=== PATIENT | male | born 1950 | race Caucasian/White ===

== ENCOUNTER 2018-03-02 13:06 | Inpatient (IN) ==
--- NOTE | 2018-03-02 14:51 | General Surgery Consult Note ---
<Rosi Oconnor - Last Filed: 03/02/18 14:51> Date of Encounter: 03/02/18 Time of Encounter: 14:51 Past Med Surg Social Fam HX - Past Medical History Medical history: aortic aneurysm, arthritis, diabetes, hyperlipidemia, hypertension, other (History of aortic dissection) Psychiatric history: anxiety, depression - Social History Smoking Status: Former smoker Smokeless Tobacco Status: Yes Alcohol use: none Drug use: none Medications and Allergies Aspirin [Adult Low Dose Aspirin EC] 81 mg PO HS 11/04/15 [History] Atenolol [Tenormin] 50 mg PO BID 11/04/15 [History] Cholecalciferol (Vitamin D3) [Vitamin D3] 5,000 unit PO DAILY 11/04/15 [History] Flaxseed Oil 1,000 mg PO HS 11/04/15 [History] Glimepiride [Amaryl] 8 mg PO DAILY 11/04/15 [History] Insulin Glargine,Hum.rec.anlog [Lantus Solostar] 30 unit SQ HS 11/04/15 [History ] Labetalol HCl 200 mg PO BID 11/04/15 [History] Lisinopril [Zestril] 40 mg PO BID 11/04/15 [History] Niacin [Niacor] 500 mg PO DAILY 11/04/15 [History] Sodium Chloride 1 gm PO DAILY 11/04/15 [History] amLODIPine [Norvasc] 5 mg PO DAILY 11/04/15 [History] Gemfibrozil [Lopid] 600 mg PO BIDWM 03/02/18 [History] cloNIDine HCl [Clonidine HCl] 0.3 mg PO TID 03/02/18 [History] 3 Allergy/AdvReac Type Severity Reaction Status Date / Time Hydromorphone [From Dilaudid] Allergy Severe Difficulty Verified 03/02/18 11:17 Breathing Oxytetracycline Allergy Mild swelling Verified 03/02/18 11:17 (childhood reaction) rosuvastatin [From Crestor] AdvReac Mild Muscle Pain Verified 03/02/18 11:17 Review of Systems All systems PM: The remainder of the systems were reviewed and are negative Results - Labs All other labs normal. Consult Discharge Plan - Plan Referrals: Margret Quezada, PRIEST [Primary Care Provider] - <Jimenez Tejeda - Last Filed: 03/02/18 18:03> Date of Encounter: 03/02/18 Assessment and Plan (1) Bowel obstruction Current Visit: No Status: Acute Extensive surgical history of the abdomen. Patient of Dr. Sanchez previously. Transferred from [place] ED given extensive surgical history and CT results below. Primary symptoms include cramping/wavelike pain, nausea, vomiting with possible fecal content given odor, and paucity/absence of BMs/flatus. Labs from [place] ED reviewed: - white count 10.3 K, hemoglobin 18.3, hematocrit 51.4, platelet 278k - PT 10.4 seconds, INR 1.0, aPTT 29.4 seconds - sodium 133, potassium 4.6, chloride 92, HCO3 26, magnesium 3.2, calcium 10.6 - BUN 31, creatinine 1.24 - serum glucose 457, (most recent A1c = 10.7%) - lactate 3.2 - total bili 0.8, direct bili 0.1, indirect bili 0.7, AST 19, ALT 16, ALP 82 - amylase 34, and lipase 65 - troponin <0.03 CT Abd Pelvis 03/02/18: Organs: The unenhanced liver, spleen, pancreas, adrenal glands and kidneys are unremarkable. The liver is diffusely low in attenuation consistent with hepatic steatosis. There are bilateral punctate nonobstructing nephrolithiasis without evidence hydronephrosis. GI/Bowel: Status post appendectomy and small bowel resection with reanastomosis. However, there are multiple dilated loops of small bowel throughout the entire abdomen with the transition point in the anterior midline pelvis just proximal to the small bowel anastomosis Plan: - NG tube in place on LIWS; confirmed with KUB -- later retracted and readvanced ; secured and re-verified by second KUB - NPO - pain control PRN - antiemetics PRN - pt hypovolemic - NS bolus 500mL now followed by 130mL/hr while NPO - close monitoring of vitals - serial abdominal exams - electrolytes QAM while NPO Qualifiers: Intestinal obstruction type: unspecified Intestinal obstruction extent: partial Qualified Code(s): K56.600 - Partial intestinal obstruction, unspecified as to cause (2) H/O abdominal surgery Current Visit: Yes Status: Acute see history tab; plans as above History of Present Illness Consult date: 03/02/18 History of present illness: 67-year-old male with past medical history of hypertension, hyperlipidemia, diabetes type II, stated history of aortic aneurysm/dissection, diverticulosis, and extensive surgical history transferred from [facility] due to partial small bowel obstruction elucidated on CT of the abdomen. HPI: cramping abdominal pain distention for the last 2 nights. No previous pain quite like this one. Describes as 10/10 peak at present. Patient states initially onset was gradual and less severe. Describes location of pain as a horizontal area about 8 inches wide midway between his periumbilical region and epigastrium. Describes pain as a wave-like cramping sensation. No radiating or migratory features. No known palliative factors; patient does have episodes where he feels constipated and he tries milk of magnesia for that which has not relieved present symptoms. No known provocative factors of pain. Patient also notes absence of bowel/flatus; last bowel movement early 03/01/2018. Has had bilious vomitus, particularly with any PO intake. He describes a nasty smelling vomitus. Patient states was able to sleep through ambulance ride between hospitals. Denies fevers, myalgias, syncope, lightheadedness, retro sternal pain, palpitations, shortness of breath, bloody contents of vomitus, melena, grossly bloody stools, flank pain, dysuria, hematuria, testicular pain, abnormal penile discharge. Does have chills and sweats during peak moments of wavelike pain. Surgical history: though timing/sequence is vaguely described, patient states has history of diverticulosis, bowel perforation, laparotomy, bowel resections with temporary colostomy, colostomy takedown, herniorrhaphy, and repair of herniorrhaphy; previous surgeon Dr. Sanchez. CT ABd Pelvis 03/02/18: Organs: The unenhanced liver, spleen, pancreas, adrenal glands and kidneys are unremarkable. The liver is diffusely low in attenuation consistent with hepatic steatosis. There are bilateral punctate nonobstructing nephrolithiasis without evidence hydronephrosis. GI/Bowel: Status post appendectomy and small bowel resection with reanastomosis. However, there are multiple dilated loops of small bowel throughout the entire abdomen with the transition point in the anterior midline pelvis just proximal to the small bowel anastomosis Past Med Surg Social Fam HX - Past Medical History Attestation: Yes The following information was validated with the patient. Source: patient Medical history: aortic aneurysm, diabetes, hyperlipidemia, hypertension, other - Past Surgical History Surgical History: colectomy, colostomy (Taken down and anastomosed), herniorrhaphy - Social History Smoking Status: Former smoker Alcohol use: none Drug use: none Review of Systems All systems PM: The remainder of the systems were reviewed and are negative - Constitutional as per HPI General Surgery Exam Initial Vital Signs Temp Pulse Resp BP Pulse Ox 98.1 F 113 18 159/94 94 03/02/18 14:52 03/02/18 14:52 03/02/18 14:52 03/02/18 14:52 03/02/18 14:52 VITAL SIGNS: Reviewed. See [facility] GENERAL: in apparent distress with episodic pain; patient in tears during these episodes. Alert and answers questions appropriately HEENT: [Normocephalic, PER, EOMi, oropharynx dry, no JVD noted. NG tube in place CV: b/l rad/DP pulses 2+, RRR, no murmurs or gallops, no JVD RESPIRATORY: CTAB without wheezes, rales, or rhonchi ABD: rotund, grossly distended, multiple surgical scars evident, normal skin appearance, bowel sounds very infrequent, overall soft, nontender except for periumbilical region just barely RLQ, no tenderness in other quadrants, no rebound/rigidity, negative heel jar sign, negative Lopez sign EXTREMITY: grossly normal motor function, no pedal edema, peripheral pulses 2+ b /l NEUROLOGIC EXAM: AOx3, obeys commands, no speech deficits. PSYCHIATRIC: normal mood and affect SKIN: no gross lesions, rashes, or skin changes Exam Initial Vital Signs Temp Pulse Resp BP Pulse Ox 98.1 F 113 18 159/94 94 03/02/18 14:52 03/02/18 14:52 03/02/18 14:52 03/02/18 14:52 03/02/18 14:52 Results - Labs 03/02/18 16:55 03/02/18 16:55 All other labs normal. <Galdino Sanchez M - Last Filed: 03/03/18 06:24> Date of Encounter: 03/02/18 Review of Systems All systems PM: The remainder of the systems were reviewed and are negative General Surgery Exam Initial Vital Signs Temp Pulse Resp BP Pulse Ox 98.1 F 113 18 159/94 94 03/02/18 14:52 03/02/18 14:52 03/02/18 14:52 03/02/18 14:52 03/02/18 14:52 Exam Initial Vital Signs Temp Pulse Resp BP Pulse Ox 98.1 F 113 18 159/94 94 03/02/18 14:52 03/02/18 14:52 03/02/18 14:52 03/02/18 14:52 03/02/18 14:52 Results - Labs 03/03/18 04:12 03/03/18 04:12 Abnormal lab results WBC 3.5 K/mcL (4.3-11.1) L 03/03/18 04:12 Lymphocytes # 0.5 K/mcL (0.6-4.6) L 03/02/18 16:55 Nucleated RBCs/100 WBC 1.1 /100 WBC (0) H 03/03/18 04:12 Reactive Lymphocytes Present (Not Present) A 03/02/18 16:55 BUN 29 mg/dL (8-23) H 03/03/18 04:12 BUN/Creatinine Ratio 28 (6-26) H 03/03/18 04:12 Glucose 313 mg/dL (70-105) H 03/03/18 04:12 POC Glucose 271 mg/dL (70-99) H 03/03/18 04:38 Calculated Osmolality 306 (280-300) H 03/03/18 04:12 Calcium 8.4 mg/dL (8.6-10.3) L 03/03/18 04:12 Ur Specific [place] 1.030 (1.010-1.025) H 03/03/18 00:36 Urine Glucose (UA) >=1000 mg/dL (Normal) H 03/03/18 00:36 Urine Ketones 15 mg/dL (Negative) H 03/03/18 00:36 Urine Microscopic RBC 3-5 per hpf (0-3) H 03/03/18 00:36 Ur Squamous Epith Cells Moderate per lpf (None-Few) H 03/03/18 00:36 Diabetes panel 03/02/18 03/03/18 Range/Units 16:55 04:12 Sodium 139 139 (136-145) mEq/L Potassium 4.4 4.7 (3.5-5.1) mEq/L Chloride 101 100 (98-107) mEq/L Carbon Dioxide 28 29 (23-29) mEq/L BUN 30 H 29 H (8-23) mg/dL Creatinine 1.05 1.02 (0.70-1.30) mg/dL Glucose 261 H 313 H (70-105) mg/dL Calcium 9.0 8.4 L (8.6-10.3) mg/dL Calcium panel 03/02/18 03/03/18 Range/Units 16:55 04:12 Calcium 9.0 8.4 L (8.6-10.3) mg/dL Pituitary panel 03/02/18 03/03/18 Range/Units 16:55 04:12 Sodium 139 139 (136-145) mEq/L Potassium 4.4 4.7 (3.5-5.1) mEq/L Chloride 101 100 (98-107) mEq/L Carbon Dioxide 28 29 (23-29) mEq/L BUN 30 H 29 H (8-23) mg/dL Creatinine 1.05 1.02 (0.70-1.30) mg/dL Glucose 261 H 313 H (70-105) mg/dL Calcium 9.0 8.4 L (8.6-10.3) mg/dL Adrenal panel 03/02/18 03/03/18 Range/Units 16:55 04:12 Sodium 139 139 (136-145) mEq/L Potassium 4.4 4.7 (3.5-5.1) mEq/L Chloride 101 100 (98-107) mEq/L Carbon Dioxide 28 29 (23-29) mEq/L BUN 30 H 29 H (8-23) mg/dL Creatinine 1.05 1.02 (0.70-1.30) mg/dL Glucose 261 H 313 H (70-105) mg/dL Calcium 9.0 8.4 L (8.6-10.3) mg/dL All other labs normal. - Attending Attestation I have personally performed a face to face evaluation on this patient. I have reviewed and agree with the care plan. History and Exam by me shows: Review the above assessment and evaluation and agree with the above plan. Patient has had abdominal pain for the past 2 days with nausea vomiting. He states his last bowel movement was approximately 2 days ago and he normally has a bowel movement twice a day. On exam he is tender to palpation in lower abdomen versus the upper. He is distended as well with midline incision showing no evidence of an incisional hernia. I personally reviewed the CT scan images and report which shows no free air or free fluid but does show dilated small bowel. He also has air in the colon and stool present. This is consistent with either partial small bowel obstruction or small bowel obstruction. I agree with NG to placement and IV fluid hydration. He will require IV fluids due to his elevated creatinine and noted elevated hemoglobin which is likely due to hemoconcentration and dehydration. I think the most important thing will be to monitor and administer medication for pain control while his bowel is decompressed. Will follow with you.
[2018-03-02] MEDS ORDERED: Ondansetron 4 MG/2 ML VIAL IVP ONE (15:28)
[2018-03-02] MEDS ORDERED: *HR* FentaNYL (PF) 100 MCG/2 ML VIAL IVP ONE (15:28)
[2018-03-02] MEDS ORDERED: Chloraseptic Spray 177 ML BOTTLE MM PRN (15:30)
[2018-03-02] MEDS ORDERED: Acetaminophen IV 1,000 MG/100 ML INFUS..BTL IVPB ONE (15:33)
[2018-03-02] MEDS ORDERED: OXYCODONE Oral CONC 10 MG/0.5 ML ORAL.SYG SL PRN (15:33)
[2018-03-02] MEDS ORDERED: *HR* Morphine 2 MG/ML SYRINGE IVP PRN (15:47)
[2018-03-02] MEDS: Pantoprazole 40 MG VIAL IVP SCH (16:03)
[2018-03-02] MEDS ORDERED: *HR* OxyCODONE Immed Rel 5 MG TABLET PO PRN (16:11)
[2018-03-02] MEDS ORDERED: Naloxone 0.4 MG/ML INJ IVP PRN (16:18)
--- NOTE | 2018-03-02 16:27 | Internal Med History&Physical ---
Date of Encounter: 03/02/18 Time of Encounter: 16:23 Internal Medicine - H&P: HPI Admitted From: Hospital to Hospital Transfer (From [facility]) Plans for Post Hospital Care: Home History of present illness: Mr. Garcia is a 67 year old male who has history of htn, hld, and DM. Presents to the hospital from [facility] after the ED discovered he had a partial SBO. The patient apparently presented to the ED with nausea and vomiting and severe abdominal cramping. The patient wbc is 10.3 the lipase was 65 and the maylase was 34. The patient does not currently have a fever. Ct of abd/pelvis showed a partial SBO with the transition point in anterior pelvis. Small to mod amt of mesenteric edema. On exam the patient was having severe abdominal cramping that brought him to tears. The episode lasted briefly, but the family indicated that he had done this several times before. Patient guarding abdomen with light palpation to umbilicus to right side. The blood glucose was 457 @ [facility]. Will get new set of labs and re-eval. The patient indicated that he had a normal stool this am. Surgery consulting and have seen the patient. Past Med Surg Social Fam HX - Past Medical History Medical history: aortic aneurysm, diabetes, hyperlipidemia, hypertension, other Psychiatric history: anxiety, depression - Past Surgical History Surgical History: colectomy, colostomy (Taken down and anastomosed), herniorrhaphy - Social History Smoking Status: Former smoker Smokeless Tobacco Status: Yes Alcohol use: none Drug use: none Internal Medicine - H&P: Meds Aspirin [Adult Low Dose Aspirin EC] 81 mg PO HS 11/04/15 [History] Atenolol [Tenormin] 50 mg PO BID 11/04/15 [History] Cholecalciferol (Vitamin D3) [Vitamin D3] 5,000 unit PO DAILY 11/04/15 [History] Flaxseed Oil 1,000 mg PO HS 11/04/15 [History] Glimepiride [Amaryl] 8 mg PO DAILY 11/04/15 [History] Insulin Glargine,Hum.rec.anlog [Lantus Solostar] 30 unit SQ HS 11/04/15 [History ] Labetalol HCl 200 mg PO BID 11/04/15 [History] Lisinopril [Zestril] 40 mg PO BID 11/04/15 [History] Niacin [Niacor] 500 mg PO DAILY 11/04/15 [History] Sodium Chloride 1 gm PO DAILY 11/04/15 [History] amLODIPine [Norvasc] 5 mg PO DAILY 11/04/15 [History] Gemfibrozil [Lopid] 600 mg PO BIDWM 03/02/18 [History] cloNIDine HCl [Clonidine HCl] 0.3 mg PO TID 03/02/18 [History] 3 Allergy/AdvReac Type Severity Reaction Status Date / Time Hydromorphone [From Dilaudid] Allergy Severe Difficulty Verified 03/02/18 11:17 Breathing Oxytetracycline Allergy Mild swelling Verified 03/02/18 11:17 (childhood reaction) rosuvastatin [From Crestor] AdvReac Mild Muscle Pain Verified 03/02/18 11:17 All Systems PM: A 10-system review of systems was performed and is negative for pertinent findings except as documented above in the HPI. - Constitutional Constitutional: no chills, no fever(s), no night sweats - EENT Eyes: no change in vision, no discharge, no pain, no photophobia Ears: no ear discharge, no ear pain, no tinnitus Nose, mouth and throat: no dysphagia, no nasal discharge, no neck pain, no sore throat - Cardiovascular Cardiovascular ROS IM: no chest pain, no diaphoresis, no dyspnea, no lightheadedness, no palpitations, no syncope - Respiratory Respiratory: no cough, no dyspnea, no wheezing, no excessive phlegm production - Gastrointestinal Gastrointestinal: abdominal pain (Right side), no diarrhea, no hematemesis, no hematochezia, no melena, no nausea, no vomiting - Musculoskeletal Musculoskeletal ROS IM: no numbness, no tingling - Integumentary Integumentary IM: no rash, no unusual bruising - Neurological Neurological ROS: no confusion, no convulsions, no focal weakness, no numbness, no tingling, no tremor(s) - Hematologic/Lymphatic Hematologic/Lymphatic: no easy bruising - Constitutional Vitals: Temp Pulse Resp BP Pulse Ox 98.1 F 114 18 154/82 89 03/02/18 16:15 03/02/18 16:15 03/02/18 16:15 03/02/18 16:15 03/02/18 16:15 General appearance: Present: A&O X 3, severe distress - Head Head exam: Present: atraumatic, normocephalic - Eye Eye exam: Present: PERRL, conjuntiva pink, sclera anicteric Pupils: Present: PERRL - Neck Neck exam general surgery: Present: supple, trachea midline. Absent: lymphadenopathy - Respiratory Respiratory exam: Present: decreased breath sounds. Absent: accessory muscle use, rales, rhonchi, wheezes - Cardiovascular Cardiovascular exam: Present: RRR, +S1, +S2. Absent: diastolic murmur, gallop, rubs, systolic murmur - GI/Abdominal GI/Abdominal exam: Present: diminished bowel sounds, distended, guarding, normal bowel sounds, soft, tenderness (Right side), no peritoneal signs - Extremities Exam Extremities exam: Present: warm, radial pulses palpable and symmetrical. Absent : calf tenderness, cyanotic, pedal edema - Neurological Exam Neurological exam: Present: CN II-XII intact, oriented X3, no focal deficits. Absent: pronater drift, facial droop, speech deficit - Skin Skin exam: Present: dry, intact Internal Med - H&P Results - Labs CBC & Chem 7: 03/02/18 16:55 03/02/18 16:55 - Impressions ITS Impressions KUB X-Ray 03/02/18 15:26 IMPRESSION: NG tube tip and side-port in the gastric fundus D/ / Chauncey Akhtar MD / Chauncey Akhtar MD Interpreting Provider: Chauncey Akhtar MD - Assessment and plan (1) Abdominal pain Current Visit: No Status: Acute Assessment and plan: The patient was found to have SBO. Pain was better controlled after fentanyl and zofran. Surgery on the case. Continue npo status and NGT. Ivf;s. Qualifiers: Abdominal location: unspecified location Qualified Code(s): R10.9 - Unspecified abdominal pain (2) Bowel obstruction Current Visit: No Status: Acute Assessment and plan: The patient was found to have a partial SBO. Pain was better controlled after fentanyl and zofran, once he arrived. Surgery on the case. Continue npo status and NGT. Ivf's. Qualifiers: Intestinal obstruction type: unspecified Intestinal obstruction extent: partial Qualified Code(s): K56.600 - Partial intestinal obstruction, unspecified as to cause (3) Hyperglycemia Current Visit: No Status: Acute Assessment and plan: Blood glucose in 400's @ [facility]. Will repeat BMP, cbc, get UA and acetone level to evaluate for possible DKA. Apparently the patient is non-adherent with his diabetic meds-as reported. - Time Spent With Patient Total time spent is greater than 50% in coordination of care (as documented) at patient's floor/unit and/or counseling patient: Greater than 35 minutes
[2018-03-02] MEDS ORDERED: 0.9 % Sodium Chloride 500 ML IVC ONE (16:55)
[2018-03-02 17:14] LABS: Basophils % 0.5 %; Eosinophils # 0.1 K/mcL (0.0-0.6); Eosinophils % 1.1 %; Hemoglobin 16.7 g/dL (12.9-16.9); Immature Granulocytes % 0.2 % (0-4); Lymphocytes # 0.5 K/mcL (0.6-4.6); Lymphocytes % 11.5 %; Mean Corpuscular HGB Conc 36.3 g/dL (31.6-35.5); Mean Corpuscular Hemoglobin 31.1 pg (28.0-33.3); Mean Corpuscular Volume 85.7 fL (83.0-100.0); Mean Platelet Volume 10.8 fL (9.4-12.4); Monocytes # 0.7 K/mcL (0.0-1.3); Monocytes % 15.8 %; Neutrophils # 3.1 K/mcL (1.6-8.9); Platelet Count 249 K/mcL (140-400); Red Blood Count 5.37 M/mcL (4.19-5.50); Red Cell Distribution Width 13.4 % (11.5-14.5); Segmented Neutrophils % 70.9 %
[2018-03-02 17:27] LABS: BUN/Creatinine Ratio 29 (6-26); Blood Urea Nitrogen 30 mg/dL (8-23); Carbon Dioxide 28 mEq/L (23-29); Chloride 101 mEq/L (98-107); Glucose 261 mg/dL (70-105); Osmolality,Calculated 303 (280-300); Potassium 4.4 mEq/L (3.5-5.1); Sodium 139 mEq/L (136-145); eGFR For African Americans > 60 (> 60); eGFR For Non-African Americans > 60 (> 60)
[2018-03-02 17:37] LABS: Reactive Lymphocytes Present (Not Present)
[2018-03-02] MEDS: 0.9 % Sodium Chloride 1,000 ML IVC SCH (18:55)
[2018-03-02] MEDS: OXYCODONE Oral CONC 10 MG/0.5 ML ORAL.SYG SL PRN (21:07)
[2018-03-03] MEDS ORDERED: Acetaminophen IV 1,000 MG/100 ML INFUS..BTL IVPB ONE (01:12)
[2018-03-03 01:15] LABS: Bilirubin,Urine Negative (Negative); Blood,Urine Negative (Negative); Clarity,Urine Clear (Clear); Color,Urine Yellow (Yellow); Glucose,Urine (UA) >=1000 mg/dL (Normal); Ketones,Urine 15 mg/dL (Negative); Leukocyte Esterase,Urine Negative (Negative); Nitrite,Urine Negative (Negative); Protein,Urine Trace mg/dL (Neg-Trace); Urobilinogen,Urine Normal (Normal)
[2018-03-03 01:18] LABS: Bacteria,Urine None Seen per hpf (None-Few); Hyaline Casts,Urine None Seen per lpf (None-Few); Squamous Epithelial Cell,Urine Moderate per lpf (None-Few); WBC,Urine 0-3 per hpf (0-3)
[2018-03-03] MEDS: 0.9 % Sodium Chloride 1,000 ML IVC SCH ×4 (01:51→22:36)
[2018-03-03] MEDS: OXYCODONE Oral CONC 10 MG/0.5 ML ORAL.SYG SL PRN ×2 (05:06→10:27)
[2018-03-03 05:13] LABS: Eosinophils # 0.1 K/mcL (0.0-0.6); Hematocrit 45.3 % (37.5-50.1); Hemoglobin 15.6 g/dL (12.9-16.9); Mean Corpuscular HGB Conc 34.4 g/dL (31.6-35.5); Mean Corpuscular Hemoglobin 30.6 pg (28.0-33.3); Mean Corpuscular Volume 88.8 fL (83.0-100.0); Nucleated Red Blood Cells 1.1 /100 WBC (0); Platelet Count 207 K/mcL (140-400); Red Cell Distribution Width 13.6 % (11.5-14.5)
[2018-03-03 05:36] LABS: BUN/Creatinine Ratio 28 (6-26); Blood Urea Nitrogen 29 mg/dL (8-23); Calcium 8.4 mg/dL (8.6-10.3); Carbon Dioxide 29 mEq/L (23-29); Chloride 100 mEq/L (98-107); Glucose 313 mg/dL (70-105); Osmolality,Calculated 306 (280-300); Potassium 4.7 mEq/L (3.5-5.1); Sodium 139 mEq/L (136-145); eGFR For African Americans > 60 (> 60); eGFR For Non-African Americans > 60 (> 60)
[2018-03-03 06:38] LABS: Lymphocytes # 0.8 K/mcL (0.6-4.6); Monocytes # 0.4 K/mcL (0.0-1.3); Neutrophils # 2.2 K/mcL (1.6-8.9)
[2018-03-03 06:39] LABS: Platelet Estimate Normal (Normal); Reactive Lymphocytes Present (Not Present)
[2018-03-03] MEDS: Pantoprazole 40 MG VIAL IVP SCH (08:59)
--- NOTE | 2018-03-03 09:38 | General Surgery Progress Note ---
<Jimenez Tejeda - Last Filed: 03/03/18 09:36> Date of Encounter: 03/03/18 Time of Encounter: 09:15 - Assessment and Plan (1) Bowel obstruction Current Visit: No Status: Inactive Extensive surgical history of the abdomen. Patient of Dr. Sanchez previously. Pain significantly improved today. Has had BM. 700mL via NG tube so far today (03/03/18). Still hypoactive bowel sounds. Plan: - NG tube cont on LIWS - NPO for one more day - pain control PRN - antiemetics PRN - serial abdominal exams - electrolytes QAM while NPO Qualifiers: Intestinal obstruction type: unspecified Intestinal obstruction extent: partial Qualified Code(s): K56.600 - Partial intestinal obstruction, unspecified as to cause (2) H/O abdominal surgery Current Visit: Yes Status: Acute Subjective Patient reports: no new complaints, feels better, pain is less, bowel movement, afebrile Objective Vital Signs - Last 8 Hours Temp Pulse Resp BP Pulse Ox 03/03/18 06:58 98.2 F 97 16 151/86 93 03/03/18 04:42 98.8 F 97 14 156/88 94 Intake and Output 03/02/18 03/03/18 03/03/18 23:59 07:59 15:59 Intake Total 100 / 100 1100 / 1100 0 / 0 Output Total 650 / 650 1575 / 1575 Balance -550 / -550 -475 / -475 0 / 0 Intake: IV Fluids 100 / 100 1100 / 1100 0.9 % Sodium Chloride 1,000 ML 1000 / 1000 @ 130 mls/hr IVC .Q7H42M [facility] Rx #:[id number] Ofirmev 1,000 mg/100 ml 1,000 100 / 100 100 / 100 mg In 100 ml @ 400 mls/hr IVPB ONCE ONE Rx#:[id number] Oral 0 / 0 0 / 0 0 / 0 Output: Urine 650 / 650 875 / 875 Stool 0 / 0 Gastric Drainage 0 / 0 700 / 700 Other: Meal NPO Percent of Meal Consumed 0% Stool Size Large Stool Consistency loose soft Stool Color Brown # Voids 1 # Bowel Movements 1 Weight 91.898 kg Blood Glucose* 230 271 Patient Weight 03/03/18 23:59 Weight 91.898 kg VITAL SIGNS: [facility]. [facility] GENERAL: comfortably supine, no acute distress, answers questions appropriately. HEENT: [Normocephalic, PER, EOMi, oropharynx dry, no JVD noted. NG tube in place CV: b/l rad/DP pulses 2+, RRR, no murmurs or gallops, no JVD RESPIRATORY: CTAB without wheezes, rales, or rhonchi ABD: rotund, pt states not distended, BS quiet, improved tenderness over RLQ/ periUmb region EXTREMITY: grossly normal motor function, no pedal edema, peripheral pulses 2+ b /l NEUROLOGIC EXAM: AOx3, obeys commands, no speech deficits. PSYCHIATRIC: normal mood and affect SKIN: no gross lesions, rashes, or skin changes - Labs 03/03/18 04:12 03/03/18 04:12 Diabetes panel 03/02/18 03/03/18 Range/Units 16:55 04:12 Sodium 139 139 (136-145) mEq/L Potassium 4.4 4.7 (3.5-5.1) mEq/L Chloride 101 100 (98-107) mEq/L Carbon Dioxide 28 29 (23-29) mEq/L BUN 30 H 29 H (8-23) mg/dL Creatinine 1.05 1.02 (0.70-1.30) mg/dL Glucose 261 H 313 H (70-105) mg/dL Calcium 9.0 8.4 L (8.6-10.3) mg/dL Calcium panel 03/02/18 03/03/18 Range/Units 16:55 04:12 Calcium 9.0 8.4 L (8.6-10.3) mg/dL Pituitary panel 03/02/18 03/03/18 Range/Units 16:55 04:12 Sodium 139 139 (136-145) mEq/L Potassium 4.4 4.7 (3.5-5.1) mEq/L Chloride 101 100 (98-107) mEq/L Carbon Dioxide 28 29 (23-29) mEq/L BUN 30 H 29 H (8-23) mg/dL Creatinine 1.05 1.02 (0.70-1.30) mg/dL Glucose 261 H 313 H (70-105) mg/dL Calcium 9.0 8.4 L (8.6-10.3) mg/dL Adrenal panel 03/02/18 03/03/18 Range/Units 16:55 04:12 Sodium 139 139 (136-145) mEq/L Potassium 4.4 4.7 (3.5-5.1) mEq/L Chloride 101 100 (98-107) mEq/L Carbon Dioxide 28 29 (23-29) mEq/L BUN 30 H 29 H (8-23) mg/dL Creatinine 1.05 1.02 (0.70-1.30) mg/dL Glucose 261 H 313 H (70-105) mg/dL Calcium 9.0 8.4 L (8.6-10.3) mg/dL - VTE Documentation of Mechanical Device: Venous foot pump, device Consult Discharge Plan - Plan Referrals: Margret Quezada, SM[employer] [Primary Care Provider] - <Galdino Sanchez - Last Filed: 03/03/18 10:11> Date of Encounter: 03/03/18 Objective Vital Signs - Last 8 Hours Temp Pulse Resp BP Pulse Ox 03/03/18 06:58 98.2 F 97 16 151/86 93 03/03/18 04:42 98.8 F 97 14 156/88 94 Intake and Output 03/02/18 03/03/18 03/03/18 23:59 07:59 15:59 Intake Total 100 / 100 1100 / 1100 0 / 0 Output Total 650 / 650 1575 / 1575 Balance -550 / -550 -475 / -475 0 / 0 Intake: IV Fluids 100 / 100 1100 / 1100 0.9 % Sodium Chloride 1,000 ML 1000 / 1000 @ 130 mls/hr IVC .Q7H42M [facility] Rx #:[id number] Ofirmev 1,000 mg/100 ml 1,000 100 / 100 100 / 100 mg In 100 ml @ 400 mls/hr IVPB ONCE ONE Rx#:[id number] Oral 0 / 0 0 / 0 0 / 0 Output: Urine 650 / 650 875 / 875 Stool 0 / 0 Gastric Drainage 0 / 0 700 / 700 Other: Meal NPO Percent of Meal Consumed 0% Stool Size Large Stool Consistency loose soft Stool Color Brown # Voids 1 # Bowel Movements 1 Weight 91.898 kg Blood Glucose* 230 271 Patient Weight 03/03/18 23:59 Weight 91.898 kg - Labs 03/03/18 04:12 03/03/18 04:12 Diabetes panel 03/02/18 03/03/18 Range/Units 16:55 04:12 Sodium 139 139 (136-145) mEq/L Potassium 4.4 4.7 (3.5-5.1) mEq/L Chloride 101 100 (98-107) mEq/L Carbon Dioxide 28 29 (23-29) mEq/L BUN 30 H 29 H (8-23) mg/dL Creatinine 1.05 1.02 (0.70-1.30) mg/dL Glucose 261 H 313 H (70-105) mg/dL Calcium 9.0 8.4 L (8.6-10.3) mg/dL Calcium panel 03/02/18 03/03/18 Range/Units 16:55 04:12 Calcium 9.0 8.4 L (8.6-10.3) mg/dL Pituitary panel 03/02/18 03/03/18 Range/Units 16:55 04:12 Sodium 139 139 (136-145) mEq/L Potassium 4.4 4.7 (3.5-5.1) mEq/L Chloride 101 100 (98-107) mEq/L Carbon Dioxide 28 29 (23-29) mEq/L BUN 30 H 29 H (8-23) mg/dL Creatinine 1.05 1.02 (0.70-1.30) mg/dL Glucose 261 H 313 H (70-105) mg/dL Calcium 9.0 8.4 L (8.6-10.3) mg/dL Adrenal panel 03/02/18 03/03/18 Range/Units 16:55 04:12 Sodium 139 139 (136-145) mEq/L Potassium 4.4 4.7 (3.5-5.1) mEq/L Chloride 101 100 (98-107) mEq/L Carbon Dioxide 28 29 (23-29) mEq/L BUN 30 H 29 H (8-23) mg/dL Creatinine 1.05 1.02 (0.70-1.30) mg/dL Glucose 261 H 313 H (70-105) mg/dL Calcium 9.0 8.4 L (8.6-10.3) mg/dL - Attending Attestation I examined this patient and my medical decision-making was reviewed with the Resident Physician. I agree with the documented findings, disposition and treatment plan as described except to the extent set forth below. I reviewed the above assessment and evaluation and agree with the above plan. Patient feels significantly better with less medication requirements. No nausea and is had a bowel movement plus some flatus. Positive tympany but mild tenderness to palpation right lower quadrant. Recommend continued NG tube decompression as well as IV fluids. I think over time his bowel function will return. Dr. Jerome to cover this weekend for general surgery and we will continue to follow.
[2018-03-03] MEDS ORDERED: D5% in Water 1,000 ML IVC PRN (10:07)
[2018-03-03] MEDS ORDERED: Dextrose Gel 15 GM/37.5 ML TUBE PO PRN ×2 (10:07)
[2018-03-03] MEDS ORDERED: *HR* Dextrose 50 % in Water (Syg) 50 ML SYRINGE IVP PRN (10:07)
[2018-03-03] MEDS ORDERED: CloNIDine Patch 0.3 MG PATCH (WEEKLY) TD SCH (10:15)
[2018-03-03] MEDS: *HR* Heparin 5,000 UNIT/ML VIAL SQ SCH ×2 (12:36→18:35)
[2018-03-03] MEDS: *HR* Metoprolol 5 MG/5 ML VIAL IVP SCH ×3 (12:36→23:40)
[2018-03-03] MEDS ORDERED: Insulin LISPRO 300 UNITS/3 ML VIAL SQ ONE (12:52)
[2018-03-03] MEDS: Insulin LISPRO 300 UNITS/3 ML VIAL SQ SCH ×3 (12:53→22:11)
--- NOTE | 2018-03-03 16:04 | Internal Med Progress Note ---
Date of Encounter: 03/03/18 Time of Encounter: 10:50 - Assessment and plan (1) Small bowel obstruction Current Visit: Yes Status: Acute Assessment and plan: Appears to be improving overall. Still has significant gastric drainage. Will continue NG tube to low intermittent suction. Surgery following. Continue supportive care. IV hydration. Monitor vital signs closely. (2) H/O abdominal surgery Current Visit: Yes Status: Acute (3) Diabetes mellitus Current Visit: Yes Status: Chronic Assessment and plan: Uncontrolled. Will place patient on sliding scale insulin. Monitor blood sugars closely. Qualifiers: Diabetes mellitus type: type 2 Diabetes mellitus fdc insulin use: with terminal operator use Diabetes mellitus complication status: with hyperglycemia Qualified Code(s): E11.65 - Type 2 diabetes mellitus with hyperglycemia; Z79.4 - terminal operator (current) use of insulin (4) Essential hypertension Current Visit: Yes Status: Chronic Assessment and plan: Uncontrolled. As patient is nothing by mouth, will change clonidine to transdermal and place him on Lopressor 10 mg every 6 hours IV. We will also add hydralazine to control blood pressure if systolic is greater than 160 mmHg. (5) DVT prophylaxis Current Visit: Yes Status: Acute Assessment and plan: With subcutaneous heparin - Time Spent With Patient Total time spent is greater than 50% in coordination of care (as documented) at patient's floor/unit and/or counseling patient: - Subjective Interval history: Patient is feeling better today. Abdominal bloating and pain appears to be improving. Is passing flatus and also had a bowel movement earlier today. Denies any chest pain or palpitations. NG tube in place. Has had 700 mL output since last night. - Constitutional Vitals: Temp Pulse Resp BP Pulse Ox 98.0 F 105 16 162/83 92 03/03/18 11:18 03/03/18 11:18 03/03/18 11:18 03/03/18 11:18 03/03/18 11:18 General appearance: Present: cooperative, mild distress, A&O X 3, pleasant, answers questions appropriately - Neck Neck exam general surgery: Present: supple, trachea midline. Absent: lymphadenopathy - Respiratory Respiratory exam: Present: CTAB. Absent: accessory muscle use, rales, rhonchi, wheezes - Cardiovascular Cardiovascular exam: Present: RRR, +S1, +S2. Absent: diastolic murmur, gallop, rubs, systolic murmur - GI/Abdominal GI/Abdominal exam: Present: diminished bowel sounds, distended, soft, tenderness (Generalized), no peritoneal signs - Extremities Exam Extremities exam: Present: warm, radial pulses palpable and symmetrical. Absent : calf tenderness, cyanotic, pedal edema - Neurological Exam Neurological exam: Present: CN II-XII intact, oriented X3, no focal deficits, strengths equal and symetr throughout. Absent: facial droop, speech deficit Internal Medicine: Result - Labs CBC & Chem 7: 03/03/18 04:12 03/03/18 04:12 Labs: Short CBC 03/02/18 03/03/18 Range/Units 16:55 04:12 WBC 4.4 D 3.5 L (4.3-11.1) K/mcL Hgb 16.7 D 15.6 (12.9-16.9) g/dL Hct 46.0 45.3 (37.5-50.1) % Plt Count 249 207 (140-400) K/mcL Neutrophils # 3.1 2.2 (1.6-8.9) K/mcL BMP 03/02/18 03/03/18 16:55 04:12 Sodium 139 139 Potassium 4.4 4.7 Chloride 101 100 Carbon Dioxide 28 29 BUN 30 H 29 H Creatinine 1.05 1.02 Glucose 261 H 313 H Calcium 9.0 8.4 L Urine 03/03/18 Range/Units 00:36 Urine Color Yellow (Yellow) Urine Clarity Clear (Clear) Urine pH 7.0 (5.0-8.0) pH Units Ur Specific Rozel 1.030 H (1.010-1.025) Urine Protein Trace (Neg-Trace) mg/dL Urine Glucose (UA) >=1000 H (Normal) mg/dL - Impressions Impressions KUB X-Ray 03/02/18 16:48 IMPRESSION: Enteric tube tip and side port within the stomach. Air-filled dilated loops of small bowel in the left upper quadrant measuring up to 3.5 cm, correlating with recent CT findings. A 1.6 cm right nephrolithiasis. D/ / 03/02/2018 17:46:44 Anjana Mary MD / [facility] Interpreting Provider: Anjana Mary MD - VTE Documentation of Mechanical Device: Venous foot pump, device Consult Discharge Plan - Plan Referrals: Margret Quezada, ESTELITA [Primary Care Provider] -
[2018-03-04] MEDS: Insulin LISPRO 300 UNITS/3 ML VIAL SQ SCH ×6 (00:10→20:42)
[2018-03-04 04:58] LABS: Basophils % 0.4 %; Eosinophils # 0.2 K/mcL (0.0-0.6); Eosinophils % 3.3 %; Hematocrit 44.3 % (37.5-50.1); Hemoglobin 15.2 g/dL (12.9-16.9); Immature Granulocytes % 0.4 % (0-4); Lymphocytes # 1.1 K/mcL (0.6-4.6); Lymphocytes % 20.7 %; Mean Corpuscular HGB Conc 34.3 g/dL (31.6-35.5); Mean Corpuscular Hemoglobin 30.5 pg (28.0-33.3); Mean Platelet Volume 10.4 fL (9.4-12.4); Monocytes # 0.9 K/mcL (0.0-1.3); Neutrophils # 3.1 K/mcL (1.6-8.9); Platelet Count 187 K/mcL (140-400); Red Blood Count 4.98 M/mcL (4.19-5.50); Red Cell Distribution Width 13.1 % (11.5-14.5); Segmented Neutrophils % 58.2 %
[2018-03-04 05:13] LABS: BUN/Creatinine Ratio 21 (6-26); Blood Urea Nitrogen 15 mg/dL (8-23); Carbon Dioxide 23 mEq/L (23-29); Chloride 103 mEq/L (98-107); Glucose 185 mg/dL (70-105); Osmolality,Calculated 284 (280-300); Potassium 4.3 mEq/L (3.5-5.1); Sodium 134 mEq/L (136-145); eGFR For African Americans > 60 (> 60); eGFR For Non-African Americans > 60 (> 60)
[2018-03-04 05:31] LABS: Platelet Estimate Normal (Normal)
[2018-03-04] MEDS: *HR* Metoprolol 5 MG/5 ML VIAL IVP SCH ×3 (06:05→18:13)
[2018-03-04] MEDS: *HR* Heparin 5,000 UNIT/ML VIAL SQ SCH ×2 (06:05→18:13)
[2018-03-04] MEDS: Pantoprazole 40 MG VIAL IVP SCH (09:25)
[2018-03-04] MEDS: 0.9 % Sodium Chloride 1,000 ML IVC SCH ×2 (09:25→19:21)
--- NOTE | 2018-03-04 10:45 | General Surgery Progress Note ---
<Theron Cedeño - Last Filed: 03/04/18 15:29> Date of Encounter: 03/04/18 Time of Encounter: 07:15 - Assessment and Plan (1) Small bowel obstruction Current Visit: Yes Status: Acute Abdominal pain continues to improve. Admits to having a bowel movement yesterday. Nasogastric tube drainage of 1255 ml yesterday and 200ml today. Normal bowel sounds present today. - Change NG tube suction to gravity. - Limited clear liquid diet 500 cc. - pain control PRN - antiemetics PRN - serial abdominal exams - electrolytes QAM (2) H/O abdominal surgery Current Visit: Yes Status: Acute Subjective Narrative: Patient says his abdominal pain is decreased from yesterday. He denies any nausea or vomiting. Admits to some shortness of breath but denies any chest pain. Denies any fever or chills. Admits to having a bowel movement. Denies any hematochezia or melena. Objective VITAL SIGNS: Reviewed. See [facility] GENERAL: No apparent distress. HEENT: [Normocephalic, PER, EOMI, oropharynx pink/moist, no JVD noted.] CV: b/l rad pulses 2+, RRR, no murmurs or gallops, no JVD RESPIRATORY: CTAB without wheezes, rales, or rhonchi ABD: soft, non-tender, no rebound/guarding/rigidity, no peritoneal signs. Normal bowel sounds present. DRAINS: An NG tube in place. EXTREMITY: grossly normal motor function, no pedal edema, peripheral pulses 2+ b /l NEUROLOGIC EXAM: AOx3, obeys commands, no speech deficits. PSYCHIATRIC: normal mood and affect SKIN: no gross lesions, rashes, or skin changes Vital Signs - Last 8 Hours Temp Pulse Resp BP Pulse Ox 03/04/18 10:26 98.5 F 83 16 174/96 95 03/04/18 07:06 98.1 F 93 16 174/103 96 03/04/18 03:26 97.6 F 94 14 168/93 96 Intake and Output 03/03/18 03/04/18 03/04/18 23:59 07:59 15:59 Intake Total 0 / 0 0 / 0 1000 / 1000 Output Total 1050 / 1050 800 / 800 575 / 575 Balance -1050 / -1050 -800 / -800 425 / 425 Intake: IV Fluids 1000 / 1000 0.9 % Sodium Chloride 1,000 ML 1000 / 1000 @ 100 mls/hr IVC .Q10H [facility] Rx#: [id number] Oral 0 / 0 0 / 0 0 / 0 Output: Urine 800 / 800 600 / 600 475 / 475 Gastric Drainage 250 / 250 200 / 200 100 / 100 Right Nare 100 / 100 Other: Stool Size Large Moderate Stool Consistency formed soft formed Stool Characteristics Normal for Patient Stool Color Brown Víctor Colored # Voids 1 # Bowel Movements 1 1 Weight 91.807 kg Blood Glucose* 156 167 - Labs 03/04/18 04:40 03/04/18 04:40 Diabetes panel 03/04/18 Range/Units 04:40 Sodium 134 L (136-145) mEq/L Potassium 4.3 (3.5-5.1) mEq/L Chloride 103 (98-107) mEq/L Carbon Dioxide 23 (23-29) mEq/L BUN 15 (8-23) mg/dL Creatinine 0.72 (0.70-1.30) mg/dL Glucose 185 H (70-105) mg/dL Calcium 8.0 L (8.6-10.3) mg/dL Calcium panel 03/04/18 Range/Units 04:40 Calcium 8.0 L (8.6-10.3) mg/dL Pituitary panel 03/04/18 Range/Units 04:40 Sodium 134 L (136-145) mEq/L Potassium 4.3 (3.5-5.1) mEq/L Chloride 103 (98-107) mEq/L Carbon Dioxide 23 (23-29) mEq/L BUN 15 (8-23) mg/dL Creatinine 0.72 (0.70-1.30) mg/dL Glucose 185 H (70-105) mg/dL Calcium 8.0 L (8.6-10.3) mg/dL Adrenal panel 03/04/18 Range/Units 04:40 Sodium 134 L (136-145) mEq/L Potassium 4.3 (3.5-5.1) mEq/L Chloride 103 (98-107) mEq/L Carbon Dioxide 23 (23-29) mEq/L BUN 15 (8-23) mg/dL Creatinine 0.72 (0.70-1.30) mg/dL Glucose 185 H (70-105) mg/dL Calcium 8.0 L (8.6-10.3) mg/dL - VTE Documentation of Mechanical Device: Venous foot pump, device Consult Discharge Plan - Plan Referrals: Margret Quezada, INTERACTIVE VIDEO TECHNICIAN [Primary Care Provider] - <Lelia Jerome - Last Filed: 03/04/18 15:41> Date of Encounter: 03/04/18 - Assessment and Plan (1) Small bowel obstruction due to adhesions Current Visit: Yes Status: Acute patient passing flatus and had a bm ngt to [place] and start clears, if tolerates clears will dc ngt prn pain control OOB to chair (2) Diabetes mellitus Current Visit: Yes Status: Chronic patient with elevated MBS, increase to high dose corrective SSI monitor MBS Qualifiers: Diabetes mellitus type: type 2 Diabetes mellitus terminal gauger insulin use: with snf use Diabetes mellitus complication status: with hyperglycemia Qualified Code(s): E11.65 - Type 2 diabetes mellitus with hyperglycemia; Z79.4 - terminal gauger (current) use of insulin (3) Essential hypertension Current Visit: Yes Status: Chronic continue iv lopressor and clonidine added home norvasc monitor Subjective Patient reports: feels better, flatus, bowel movement, afebrile Objective Vital Signs - Last 8 Hours Temp Pulse Resp BP Pulse Ox 03/04/18 10:26 98.5 F 83 16 174/96 95 Intake and Output 03/03/18 03/04/18 03/04/18 23:59 07:59 15:59 Intake Total 0 / 0 0 / 0 1000 / 1000 Output Total 1050 / 1050 800 / 800 575 / 575 Balance -1050 / -1050 -800 / -800 425 / 425 Intake: IV Fluids 1000 / 1000 0.9 % Sodium Chloride 1,000 ML 1000 / 1000 @ 100 mls/hr IVC .Q10H [facility] Rx#: [id number] Oral 0 / 0 0 / 0 0 / 0 Output: Urine 800 / 800 600 / 600 475 / 475 Gastric Drainage 250 / 250 200 / 200 100 / 100 Right Nare 100 / 100 Other: Stool Size Large Moderate Stool Consistency formed soft formed Stool Characteristics Normal for Patient Stool Color Brown Víctor Colored # Voids 1 # Bowel Movements 1 1 Weight 91.807 kg Blood Glucose* 156 167 186 - General physical appearance well developed, well nourished, no distress - Eyes PERRL, normal ocular movement - ENT normal mucosa, normocephalic - Neck Neck exam: trachea midline - Respiratory normal expansion, clear to auscultation - Cardiovascular Cardiovascular exam: Present: RRR - Abdomen Abdomen: Present: bowel sounds present, soft, non tender. Absent: distended, guarding, rebound - Integumentary no rash, no growths - Neurologic CN 2-12 grossly intact - Musculoskeletal normal posture - Psychiatric oriented to time, oriented to person, oriented to place, memory intact - Labs 03/04/18 04:40 03/04/18 04:40 Vital Signs Temp Pulse Resp BP Pulse Ox 03/04/18 10:26 98.5 F 83 16 174/96 95 03/04/18 07:06 98.1 F 93 16 174/103 96 03/04/18 03:26 97.6 F 94 14 168/93 96 03/03/18 23:29 97.7 F 91 14 165/87 97 03/03/18 22:39 92 03/03/18 20:10 99.9 F H 103 18 164/94 92 Intake and Output 03/03/18 03/04/18 03/04/18 23:59 07:59 15:59 Intake Total 0 / 0 0 / 0 1000 / 1000 Output Total 1050 / 1050 800 / 800 575 / 575 Balance -1050 / -1050 -800 / -800 425 / 425 Intake: IV Fluids 1000 / 1000 0.9 % Sodium Chloride 1,000 ML 1000 / 1000 @ 100 mls/hr IVC .Q10H [facility] Rx#: [id number] Oral 0 / 0 0 / 0 0 / 0 Output: Urine 800 / 800 600 / 600 475 / 475 Gastric Drainage 250 / 250 200 / 200 100 / 100 Right Nare 100 / 100 Other: Stool Size Large Moderate Stool Consistency formed soft formed Stool Characteristics Normal for Patient Stool Color Brown Víctor Colored # Voids 1 # Bowel Movements 1 1 Weight 91.807 kg Blood Glucose* 156 167 186 Short CBC 03/04/18 Range/Units 04:40 WBC 5.4 D (4.3-11.1) K/mcL Hgb 15.2 (12.9-16.9) g/dL Hct 44.3 (37.5-50.1) % Plt Count 187 (140-400) K/mcL Neutrophils # 3.1 (1.6-8.9) K/mcL BMP 03/04/18 Range/Units 04:40 Sodium 134 L (136-145) mEq/L Potassium 4.3 (3.5-5.1) mEq/L Chloride 103 (98-107) mEq/L Carbon Dioxide 23 (23-29) mEq/L BUN 15 (8-23) mg/dL Creatinine 0.72 (0.70-1.30) mg/dL Glucose 185 H (70-105) mg/dL Calcium 8.0 L (8.6-10.3) mg/dL - Attending Attestation I examined this patient and my medical decision-making was reviewed with the Resident Physician. I agree with the documented findings, disposition and treatment plan as described except to the extent set forth below.
--- NOTE | 2018-03-04 13:59 | Internal Med Progress Note ---
Date of Encounter: 03/04/18 Time of Encounter: 13:56 - Assessment and plan (1) Small bowel obstruction Current Visit: Yes Status: Acute Assessment and plan: Appears to be clinically getting better. Having bowel movements and passing flatus. NG tube in place. Surgery following. May be able to start clear liquid diet today. We will await surgery recommendations. Continue symptomatic care. (2) H/O abdominal surgery Current Visit: Yes Status: Acute (3) Diabetes mellitus Current Visit: Yes Status: Chronic Assessment and plan: Blood sugars are better controlled. We will continue to monitor and adjust insulin regimen accordingly when patient is started on diet Qualifiers: Diabetes mellitus type: type 2 Diabetes mellitus superintendent marine oil terminal insulin use: with superintendent marine oil terminal use Diabetes mellitus complication status: with hyperglycemia Qualified Code(s): E11.65 - Type 2 diabetes mellitus with hyperglycemia; Z79.4 - oil heaterman (current) use of insulin (4) Essential hypertension Current Visit: Yes Status: Chronic Assessment and plan: uncontrolled. Continue clonidine patch. Lopressor 10 mg every 6 hrs scheduled. Also on hydralazine as needed for systolic greater than 160. (5) DVT prophylaxis Current Visit: Yes Status: Acute Assessment and plan: Continue subcutaneous heparin - Time Spent With Patient Total time spent is greater than 50% in coordination of care (as documented) at patient's floor/unit and/or counseling patient: - Subjective Interval history: Patient doing much better today. NG output decreasing. Patient having bowel movements. Passing flatus. Abdominal discomfort and bloating improved. - Constitutional Vitals: Temp Pulse Resp BP Pulse Ox 98.5 F 83 16 174/96 95 03/04/18 10:26 03/04/18 10:26 03/04/18 10:26 03/04/18 10:26 03/04/18 10:26 General appearance: Present: cooperative, mild distress, A&O X 3, pleasant, answers questions appropriately - Eye Eye exam: Present: EOMI, PERRL, conjuntiva pink, sclera anicteric - ENT Additional comments: NG tube in place draining clear fluid tinged with blood - Respiratory Respiratory exam: Present: CTAB. Absent: accessory muscle use, rales, rhonchi, wheezes - Cardiovascular Cardiovascular exam: Present: RRR, +S1, +S2. Absent: diastolic murmur, gallop, rubs, systolic murmur - GI/Abdominal GI/Abdominal exam: Present: normal bowel sounds, soft, no peritoneal signs. Absent: distended, tenderness - Extremities Exam Extremities exam: Present: warm, radial pulses palpable and symmetrical. Absent : calf tenderness, cyanotic, pedal edema Internal Medicine: Result - Labs CBC & Chem 7: 03/04/18 04:40 03/04/18 04:40 Labs: Short CBC 03/04/18 Range/Units 04:40 WBC 5.4 D (4.3-11.1) K/mcL Hgb 15.2 (12.9-16.9) g/dL Hct 44.3 (37.5-50.1) % Plt Count 187 (140-400) K/mcL Neutrophils # 3.1 (1.6-8.9) K/mcL BMP 03/04/18 04:40 Sodium 134 L Potassium 4.3 Chloride 103 Carbon Dioxide 23 BUN 15 Creatinine 0.72 Glucose 185 H Calcium 8.0 L - Impressions Impressions KUB X-Ray 03/02/18 16:48 IMPRESSION: Enteric tube tip and side port within the stomach. Air-filled dilated loops of small bowel in the left upper quadrant measuring up to 3.5 cm, correlating with recent CT findings. A 1.6 cm right nephrolithiasis. D/ / 03/02/2018 17:46:44 Anjana Mary MD / rk Interpreting Provider: Anjana Mary MD - [facility]TE Documentation of Mechanical Device: Venous foot pump, device Consult Discharge Plan - Plan Referrals: Margret Quezada, GYN PHYSICIAN [Primary Care Provider] -
[2018-03-05] MEDS: *HR* Metoprolol 5 MG/5 ML VIAL IVP SCH ×3 (00:11→12:15)
[2018-03-05 04:34] LABS: Basophils % 0.4 %; Eosinophils # 0.1 K/mcL (0.0-0.6); Eosinophils % 1.6 %; Hematocrit 41.1 % (37.5-50.1); Hemoglobin 14.8 g/dL (12.9-16.9); Immature Granulocytes % 0.7 % (0-4); Lymphocytes # 1.1 K/mcL (0.6-4.6); Lymphocytes % 14.6 %; Mean Corpuscular Hemoglobin 31.3 pg (28.0-33.3); Mean Corpuscular Volume 86.9 fL (83.0-100.0); Mean Platelet Volume 10.9 fL (9.4-12.4); Monocytes # 0.9 K/mcL (0.0-1.3); Monocytes % 12.1 %; Neutrophils # 5.4 K/mcL (1.6-8.9); Platelet Count 173 K/mcL (140-400); Red Blood Count 4.73 M/mcL (4.19-5.50); Red Cell Distribution Width 12.7 % (11.5-14.5); Segmented Neutrophils % 70.6 %
[2018-03-05 04:54] LABS: BUN/Creatinine Ratio 18 (6-26); Blood Urea Nitrogen 11 mg/dL (8-23); Calcium 8.1 mg/dL (8.6-10.3); Carbon Dioxide 20 mEq/L (23-29); Chloride 102 mEq/L (98-107); Glucose 168 mg/dL (70-105); Osmolality,Calculated 281 (280-300); Potassium 3.6 mEq/L (3.5-5.1); Sodium 134 mEq/L (136-145); eGFR For African Americans > 60 (> 60); eGFR For Non-African Americans > 60 (> 60)
[2018-03-05] MEDS: 0.9 % Sodium Chloride 1,000 ML IVC SCH (05:23)
[2018-03-05] MEDS: *HR* Heparin 5,000 UNIT/ML VIAL SQ SCH (05:24)
[2018-03-05] MEDS ORDERED: amLODIPine 5 MG TABLET PO SCH (09:00)
[2018-03-05] MEDS: Pantoprazole 40 MG VIAL IVP SCH (09:26)
[2018-03-05] MEDS: Insulin LISPRO 300 UNITS/3 ML VIAL SQ SCH ×2 (09:26→12:15)
[2018-03-05 11:12] VITALS: BP 176/92
--- NOTE | 2018-03-05 14:07 | Discharge Summary ---
- NOTES TO OUTPATIENT PROVIDER Notes to Outpatient Provider: Patient hospitalized here with small bowel obstruction. Treated conservatively with nasogastric tube to low intermittent suction and bowel rest. Bowel obstruction resolved now. Tolerating oral diet well. Follow up outpatient with PCP. Date of Encounter: 03/05/18 Time of Encounter: 08:15 - Discharge Diagnosis (1) Small bowel obstruction Priority: Primary Status: Acute (2) H/O abdominal surgery Priority: Secondary Status: Acute (3) Diabetes mellitus Priority: Secondary Status: Chronic Qualifiers: Diabetes mellitus type: type 2 Diabetes mellitus snf insulin use: with intermediate school teacher use Diabetes mellitus complication status: with hyperglycemia Qualified Code(s): E11.65 - Type 2 diabetes mellitus with hyperglycemia; Z79.4 - termite treater helper (current) use of insulin (4) Essential hypertension Priority: Secondary Status: Chronic (5) DVT prophylaxis Priority: Secondary Status: Acute Hospital course: Mr. Garcia is a 67 year old male patient with history of hypertension, hyperlipidemia, diabetes who was hospitalized here with small bowel obstruction. Most likely related to adhesions from prior abdominal surgery. Surgery was consulted. He was treated conservatively with nasogastric tube to low intermittent suction and bowel rest. His symptoms improved with this treatment plan. Bowel obstruction resolved now. Tolerating oral diet well. He will be discharged later today if he tolerated soft diet. He can Follow up outpatient with PCP for further management of his chronic medical problems.. Discharge discussed with: patient, medical cost consultant - Time Spent with Patient Total time spent providing and/or coordinating discharge services: Less than 30 minutes (25 min) - Discharge Medications Home Medications: Atenolol [Tenormin] 50 mg PO BID 11/04/15 [History] Flaxseed Oil 1,000 mg PO HS 11/04/15 [History] Glimepiride [Amaryl] 8 mg PO DAILY 11/04/15 [History] Labetalol HCl 200 mg PO BID 11/04/15 [History] Lisinopril [Zestril] 40 mg PO BID 11/04/15 [History] Sodium Chloride 1 gm PO DAILY 11/04/15 [History] amLODIPine [Norvasc] 5 mg PO DAILY 11/04/15 [History] Gemfibrozil [Lopid] 600 mg PO BIDWM 03/02/18 [History] cloNIDine HCl [Clonidine HCl] 0.3 mg PO TID 03/02/18 [History] Aspirin [Lo-Dose Aspirin EC] 81 mg PO DAILY 03/03/18 [History] Cholecalciferol (D-3) [Vitamin D] 5,000 unit PO DAILY 03/03/18 [History] Insulin Lispro Protamin/Lispro [Humalog Mix 75-25 Kwikpen] 15 units SQ BID 03/03 [History] Niacin [Plain Niacin] 500 mg PO DAILY 03/03/18 [History] Allergies/Adverse Reactions: 3 Allergy/AdvReac Type Severity Reaction Status Date / Time Hydromorphone [From Dilaudid] Allergy Severe Difficulty Verified 03/03/18 09:40 Breathing Oxytetracycline Allergy Mild swelling Verified 03/03/18 09:40 (childhood reaction) rosuvastatin [From Crestor] AdvReac Mild Muscle Pain Verified 03/03/18 09:40 Date of admission: 03/02/18 14:26 Primary care physician: Margret Quezada CNP Consults: General surgery Discharging clinician: Lee Angulo Anticipated date of discharge: 03/05/18 - Constitutional Vitals: Temp Pulse Resp BP Pulse Ox 98.0 F 98 15 176/92 99 03/05/18 11:07 03/05/18 11:07 03/05/18 11:07 03/05/18 11:07 03/05/18 11:07 General appearance: Present: cooperative, A&O X 3, pleasant, no acute distress, answers questions appropriately - Respiratory Respiratory exam: Present: CTAB. Absent: accessory muscle use, rales, rhonchi, wheezes - Cardiovascular Cardiovascular exam: Present: RRR, +S1, +S2. Absent: diastolic murmur, gallop, rubs, systolic murmur - GI/Abdominal GI/Abdominal exam: Present: normal bowel sounds, soft, no peritoneal signs. Absent: distended, tenderness - Patient Status Disposition: Home, Self-Care Condition: Good Functional capacity at discharge: independent ambulation Overall status at discharge: patient is progressing back to baseline - Discharge Instructions Follow Up With: Margret Quezada CNP [Primary Care Provider] - (in 1-2 weeks) - Diet and Activity Activity: increase activity as tolerated Diet: advance to your usual diet - VTE Documentation of Mechanical Device: Venous foot pump, device
--- NOTE | 2018-03-05 15:32 | General Surgery Progress Note ---
Date of Encounter: 03/05/18 Time of Encounter: 11:30 - Assessment and Plan (1) Small bowel obstruction due to adhesions Current Visit: Yes Status: Acute patient passing flatus and had a bm tolerated clears, start soft diet and if tolerates ok to dc general surgery signing off (2) Diabetes mellitus Current Visit: Yes Status: Chronic patient with elevated MBS, increase to high dose corrective SSI monitor MBS Qualifiers: Diabetes mellitus type: type 2 Diabetes mellitus rodent exterminator insulin use: with rodent exterminator use Diabetes mellitus complication status: with hyperglycemia Qualified Code(s): E11.65 - Type 2 diabetes mellitus with hyperglycemia; Z79.4 - [facility] (current) use of insulin (3) Essential hypertension Current Visit: Yes Status: Chronic continued HTN, would recommend starting home medication regimen monitor Subjective Patient reports: no new complaints, feels better, tolerating liquids well, flatus, bowel movement, afebrile Objective Vital Signs - Last 8 Hours Temp Pulse Resp BP Pulse Ox 03/05/18 11:07 98.0 F 98 15 176/92 99 Intake and Output 03/04/18 03/05/18 03/05/18 23:59 07:59 15:59 Intake Total 1000 / 1000 1000 / 1000 0 / 0 Output Total 0 / 0 1050 / 1050 900 / 900 Balance 1000 / 1000 -50 / -50 -900 / -900 Intake: IV Fluids 1000 / 1000 1000 / 1000 0.9 % Sodium Chloride 1,000 ML 1000 / 1000 1000 / 1000 @ 100 mls/hr IVC .Q10H [facility] Rx#: [id number] Oral 0 / 0 0 / 0 0 / 0 Output: Urine 0 / 0 900 / 900 900 / 900 Gastric Drainage 0 / 0 150 / 150 Other: # Voids 3 Weight 86.183 kg Blood Glucose* 136 171 177 Patient Weight 03/05/18 23:59 Weight 86.183 kg - General physical appearance well developed, well nourished, no distress - Eyes PERRL, normal ocular movement - ENT normal mucosa, normocephalic - Neck Neck exam: trachea midline - Respiratory normal expansion, clear to auscultation - Cardiovascular Cardiovascular exam: Present: RRR - Abdomen Abdomen: Present: bowel sounds present, soft, non tender. Absent: distended - Integumentary no growths - Musculoskeletal normal posture - Psychiatric oriented to time, oriented to person, oriented to place, memory intact - Labs 03/05/18 03:30 03/05/18 03:30 Diabetes panel 03/05/18 Range/Units 03:30 Sodium 134 L (136-145) mEq/L Potassium 3.6 (3.5-5.1) mEq/L Chloride 102 (98-107) mEq/L Carbon Dioxide 20 L (23-29) mEq/L BUN 11 (8-23) mg/dL Creatinine 0.62 L (0.70-1.30) mg/dL Glucose 168 H (70-105) mg/dL Calcium 8.1 L (8.6-10.3) mg/dL Calcium panel 03/05/18 Range/Units 03:30 Calcium 8.1 L (8.6-10.3) mg/dL Pituitary panel 03/05/18 Range/Units 03:30 Sodium 134 L (136-145) mEq/L Potassium 3.6 (3.5-5.1) mEq/L Chloride 102 (98-107) mEq/L Carbon Dioxide 20 L (23-29) mEq/L BUN 11 (8-23) mg/dL Creatinine 0.62 L (0.70-1.30) mg/dL Glucose 168 H (70-105) mg/dL Calcium 8.1 L (8.6-10.3) mg/dL Adrenal panel 03/05/18 Range/Units 03:30 Sodium 134 L (136-145) mEq/L Potassium 3.6 (3.5-5.1) mEq/L Chloride 102 (98-107) mEq/L Carbon Dioxide 20 L (23-29) mEq/L BUN 11 (8-23) mg/dL Creatinine 0.62 L (0.70-1.30) mg/dL Glucose 168 H (70-105) mg/dL Calcium 8.1 L (8.6-10.3) mg/dL - VTE Documentation of Mechanical Device: Venous foot pump, device Consult Discharge Plan - Plan Referrals: Margret Quezada, ESTELITA [Primary Care Provider] - (in 1-2 weeks)
[2018-03-05] MEDS ORDERED: Insulin LISPRO 300 UNITS/3 ML VIAL SQ SCH (21:00)
== END 2018-03-05 15:45 | disposition home or self-care (01) | DRG 390 ==
LOC: 3ANU 14:26 → SUATTDRO 14:26
PROVIDERS: ADMIT General Practice; ATTEND Internal Medicine